=== PATIENT | female | born 1955 | race African-American/Black ===

== ENCOUNTER 2023-02-10 20:30 | Emergency (ER) | payer MEDICARE, OTHER ==
[2023-02-10 21:00] LABS: BASOPHILS PERCENT AUTO 0.2 % (0.0-1.0); EOSINOPHILS PERCENT AUTO 1.6 % (1.0-3.0); HEMATOCRIT 39.3 % (37.0-47.0); HEMOGLOBIN 14.1 g/dL (12.0-16.0); LYMPHOCYTES PERCENT AUTO 43.8 % (20.5-50.1); MEAN CORPUSCULAR HEMOGLOBIN 29.5 pg (27.0-34.0); MEAN CORPUSCULAR HGB CONC 35.9 g/dL (33.0-35.0); MEAN CORPUSCULAR VOLUME 82.2 fL (80-100); NEUTROPHILS PERCENT AUTO 47.4 % (42.2-75.2); PLATELET COUNT,PLT 239 10^3/uL (150-450); RED BLOOD CELL COUNT 4.78 10^6/uL (4.2-5.4); WHITE BLOOD CELL COUNT,WBC 5.8 10^3/uL (5.0-10.0)
[2023-02-10 21:15] LABS: PROTHROMBIN TIME 9.9 SEC (9.0-12.0)
[2023-02-10] MEDS ORDERED: niCARdipine/Normal Saline 20 MG in Premix Bag 1 BAG IV SCH (21:30)
[2023-02-10 21:34] LABS: ALANINE AMINOTRANSFERASE,ALT 18 U/L (14-59); ALBUMIN 3.4 g/dL (3.4-5.0); ALKALINE PHOSPHATASE 98 U/L (46-116); ANION GAP 11.5 mEq/L (7-13); ASPARTATE AMNIOTRANSFERASE,AST 12 U/L (15-37); BILIRUBIN TOTAL 0.8 mg/dL (0.2-1.0); BLOOD UREA NITROGEN,BUN 13 mg/dL (7-18); BUN/CREATININE RATIO 10.7 (No establ ref range); CALCIUM 8.8 mg/dL (8.5-10.1); CARBON DIOXIDE,CO2 29 mmol/L (21-32); CHLORIDE,CL 99 mmol/L (98-107); CREATININE 1.22 mg/dL (0.55-1.02); ESTIMATED GFR 48 mL/min (>=60); GLUCOSE RANDOM 390 mg/dL (70-99); MAGNESIUM 1.1 mg/dL (1.8-2.4); POTASSIUM,K 3.5 mmol/L (3.5-5.1); PROTEIN TOTAL,TP 6.8 g/dL (6.4-8.2); SODIUM,NA 136 mmol/L (136-145)
[2023-02-10 21:40] LABS: LACTIC ACID 1.5 mmol/L (0.4-2.0)
[2023-02-10 21:55] VITALS: BP 156/76; PULSE 62
== END 2023-02-10 21:39 ==
LOC: DL.ED 20:30
DX: I63.89 Other cerebral infarction (principal); I61.8 Other nontraumatic intracerebral hemorrhage; R73.9 Hyperglycemia, unspecified; Z79.899 Other long term (current) drug therapy
CPT/HCPCS: 36415; 70450; 80053; 82009; 82140; 82947; 83605; 83735; 85025; 85610; 93005; 93010; 96374; 99285; 99285-25; J3490

== ENCOUNTER 2024-06-06 13:18 | Emergency (ER) | payer MEDICARE, OTHER ==
[2024-06-06 13:37] VITALS: BP 153/86; PULSE 88
[2024-06-06] MEDS: Ibuprofen 800 MG Tab PO ONE (14:31)
[2024-06-06] MEDS: Acetaminophen 500 MG Tab PO ONE (14:31)
[2024-06-06] MEDS: Take Home: Doxycycline 100 MG Cap, 4 Cap Pack PO ONE (16:06)
== END 2024-06-06 16:05 | disposition home or self-care (01) ==
LOC: DL.ED 13:18
DX: L02.01 Cutaneous abscess of face (principal); I10 Essential (primary) hypertension; E11.9 Type 2 diabetes mellitus without complications; Z79.899 Other long term (current) drug therapy
CPT/HCPCS: 41800; 70486; 99283; A9270; 99282